=== PATIENT | male | born 1965 | race Caucasian/White ===

== ENCOUNTER 2018-08-22 08:48 | Emergency (ER) | payer SELFPAY ==
[~2018-08-22] VITALS: Ht 182.9 cm; Wt 94.9 kg
[2018-08-22 08:51] VITALS: BP 134/81
--- NOTE | 2018-08-22 08:58 | NUR ---
PATIENT PRESENTS TO ED WITH C/O A PIECE OF GLASS CUT RIGHT HAND X TODAY. CAN'T RECALL LAST TDAP. PATIENT STATES PAIN OF 4/10 AT THIS TIME; VSS; PATIENT POSITIONED FOR COMFORT; HOB ELEVATED; BEDRAILS UP X2; BED DOWN. ER MD MADE AWARE OF PT STATUS.
--- NOTE | 2018-08-22 09:04 | NUR ---
Patient being evaluated by physician at bedside.
[2018-08-22] MEDS ORDERED: HYDROcodone/APAP 5/325 MG 1 TAB TAB PO ONE (09:10)
[2018-08-22] MEDS ORDERED: NEOMYCIN/POLYMYXIN/BACITRACIN 0.9 GM/1 PKT TP ONE (09:10)
[2018-08-22] MEDS ORDERED: LIDOCAINE 1% 500 MG/50 ML VIAL INJ ONE (09:10)
[2018-08-22] MEDS ORDERED: cefTRIAXone 1,000 MG in LIDOCAINE 1% ***ER ONLY *** 2.1 ML IM ONE (09:10)
[2018-08-22] MEDS: NEOMYCIN/POLYMYXIN/BACITRACIN 0.9 GM/1 PKT TP ONE ×2 (09:23→09:43)
[2018-08-22] MEDS ORDERED: cefTRIAXone 1,000 MG VIAL ONE (09:27)
[2018-08-22] MEDS ORDERED: LIDOCAINE MPF 1% - 5 mL VIAL 5 ML ONE ×2 (09:29→09:51)
--- NOTE | 2018-08-22 09:39 | NUR ---
Dr. Negrete at bedside for laceration repair.
--- NOTE | 2018-08-22 10:26 | NUR ---
PT WAS FITTED WITH A SLING FOR COMFORT.
[2018-08-22 10:40] VITALS: BP 134/81
--- NOTE | 2018-08-22 10:40 | NUR ---
Patient discharged with v/s stable. Written and verbal after care instructions given and explained. Rx of KEFLEX, TRAMADOL given. Patient educated on indication of medication including possible reaction and side effects. ID band removed. Patient advised to follow up with PMD.
== END 2018-08-22 10:40 | disposition home or self-care (01) ==
LOC: MED 08:48
DX: S61.411A Laceration without foreign body of right hand, initial encounter (principal); W25.XXXA Contact with sharp glass, initial encounter; Y93.89 Activity, other specified; Y92.89 Other specified places as the place of occurrence of the external cause; Y99.8 Other external cause status
CPT/HCPCS: 12002; 73130; 90471; 90715; 96372; 99284; J0696; J2001; Q0092